=== PATIENT | female | born 1990 | race Caucasian/White ===

== ENCOUNTER 2017-04-26 14:29 | Emergency (ER) | payer SELFPAY ==
[~2017-04-26] VITALS: Ht 170.2 cm; Wt 103.5 kg
[~2017-04-26 14:29] MED LIST: ALBU90OI INH; BENZ100A PO; CEPH500 PO; CLIN150 PO; CLOB.05TO TP; CODACE30 PO; Elite Ob Dha S1 EACH; FAMO20 PO; FERR325 PO; HYDACE5 PO; HYDCOR1TC TOP; IBUP800 PO; MULVITMINE PO; NAPR500 PO; OXYACE5T PO; PENVK500 PO; PHENA200 PO; PROM25 PO; SULTRIDS PO; SUMA25 PO
[2017-04-26] MEDS ORDERED: BUSP10 PO (15:13)
[2017-04-26] MEDS ORDERED: BENZ100A PO (15:52)
[2017-04-26] MEDS ORDERED: Sudogest60 MG PO (15:52)
== END 2017-04-26 16:10 | disposition home or self-care (01) ==
LOC: ER 14:29
DX: J06.9 Acute upper respiratory infection, unspecified (principal); Z79.899 Other long term (current) drug therapy; F17.210 Nicotine dependence, cigarettes, uncomplicated
CPT/HCPCS: 99283

== ENCOUNTER → 2018-05-13 | Outpatient (CLI) | payer OTHER ==
[~2018-05-13] MED LIST changes: +BUSP10 PO; +Sudogest60 MG PO
== END | disposition home or self-care (01) ==
LOC: LAB EV 15:56 → LAB SHORT 15:56
DX: J02.9 Acute pharyngitis, unspecified (principal); N39.0 Urinary tract infection, site not specified
CPT/HCPCS: 87070; 87086

== ENCOUNTER 2018-07-25 11:27 | Emergency (ER) | payer OTHER ==
[~2018-07-25] VITALS: Ht 170.2 cm; Wt 113.4 kg
[2018-07-25] MEDS ORDERED: Verotin-Gr Cap1 EACH PO (11:39)
[2018-07-25] MEDS ORDERED: Veetids 500500 MG PO (13:14)
== END 2018-07-25 13:30 | disposition home or self-care (01) ==
LOC: ER 11:27
DX: O99.513 Diseases of the respiratory system complicating pregnancy, third trimester (principal); J02.0 Streptococcal pharyngitis; Z3A.30 30 weeks gestation of pregnancy
CPT/HCPCS: 87430; 99282

== ENCOUNTER 2018-09-21 15:47 | Inpatient (IN) | payer OTHER ==
[~2018-09-21] VITALS: Ht 170.2 cm; Wt 118.0 kg
[~2018-09-21 15:47] MED LIST changes: +Veetids 500500 MG PO; +Verotin-Gr Cap1 EACH PO
[2018-09-22] MEDS ORDERED: IRON236 MG PO (10:24)
[2018-09-22 10:39] LABS: BASOPHILS ABSOLUTE AUTO 0.03 K/mm3 (0.00-0.23); BASOPHILS PERCENT AUTO 0 % (0-2); EOSINOPHILS ABSOLUTE AUTO 0.11 K/mm3 (0.00-0.68); EOSINOPHILS PERCENT AUTO 1 % (0-6); Hematocrit 35.3 % (33.0-51.0); Hemoglobin 11.3 g/dL (11.5-16.0); IMMATURE GRAN ABSOLUTE AUTO 0.06 K/mm3 (0.00-0.10); IMMATURE GRAN PERCENT AUTO 1 % (0-1); LYMPHOCYTES ABSOLUTE AUTO 1.03 K/mm3 (0.84-5.20); LYMPHOCYTES PERCENT AUTO 12 % (21-46); MONOCYTES ABSOLUTE AUTO 0.47 K/mm3 (0.16-1.47); MONOCYTES PERCENT AUTO 5 % (4-13); Mean Corpuscular HGB 29.4 pg (26.0-34.0); Mean Corpuscular Volume 92 fL (80-100); Mean Platelet Volume 10.6 fL (9.1-12.4); NEUTROPHILS ABSOLUTE AUTO 7.27 K/mm3 (1.96-9.15); NEUTROPHILS PERCENT AUTO 81 % (41-73); Platelet Count 167 K/mm3 (150-400); RDW Coefficient Variation 15.3 % (11.7-14.2); RDW Standard Deviation 51.4 fL (35.1-46.3); Red Blood Cell Count 3.85 M/mm3 (3.80-5.20); White Blood Cell Count 8.97 K/mm3 (4.00-11.30)
[2018-09-24 08:20] LABS: PCO2 Cord - Venous 56.9 mmHg (40-50); PO2 Cord - Venous 23.7 mmHg (28-32); pH Umbilical Cord - Venous 7.18 (7.26-7.35)
[2018-09-24 08:21] LABS: PCO2 Cord - Arterial 73.6 mmHg (40-50); pH Cord - Arterial 7.11 (7.28-7.35)
[2018-09-24 08:22] LABS: PO2 Cord - Arterial < 18 mmHg (16-20)
--- NOTE | 2018-09-24 08:27 | NUR ---
09/24/18 0827 Sharon Brink REPEAT SECTION WITH BILATERAL SALPINGECTOMY. FEMALE APGARS 9/9, WT 3050 (6-12GM), PLACENTA WEIGHT 670GM. CORD SEGMENT GIVEN TO RT AND CORD BLOOD GIVEN TO BABY RN.
--- NOTE | 2018-09-25 01:07 | NUR ---
IV WOULD NOT FLUSH AND WAS VERY PAINFUL TO PT WHEN GETTING READY TO GIVE ABX. IV WAS REMOVED AND A NEW ONE ATTEMPTED TO BE INSERTED, BUT MULTIPLE ATTEMPTS BY THIS NURSE AND THE METAL BALER TONY Langston WERE UNSUCCESSFUL. PT HAS LIMITED ACCESS DUE TO PSORIASIS OVER LARGE PARTS OF BOTH ARMS. PT RECEIVED ONE PRE-OP ABX DOSE AND TWO POST-OP. AFTER DISCUSSING WITH METAL BALER SHERRY, THIS ABX DOSE WILL BE DOCUMENTED NOT GIVEN, AND THE PROVIDER WILL BE NOTIFIED IN THE MORNING TO SEE WHAT THEY WANT TO DO. KIOK RN
[2018-09-25 05:50] LABS: BASOPHILS ABSOLUTE AUTO 0.03 K/mm3 (0.00-0.23); BASOPHILS PERCENT AUTO 0 % (0-2); EOSINOPHILS ABSOLUTE AUTO 0.19 K/mm3 (0.00-0.68); EOSINOPHILS PERCENT AUTO 2 % (0-6); Hematocrit 31.6 % (33.0-51.0); Hemoglobin 10.4 g/dL (11.5-16.0); IMMATURE GRAN ABSOLUTE AUTO 0.04 K/mm3 (0.00-0.10); IMMATURE GRAN PERCENT AUTO 1 % (0-1); LYMPHOCYTES ABSOLUTE AUTO 0.66 K/mm3 (0.84-5.20); LYMPHOCYTES PERCENT AUTO 8 % (21-46); MONOCYTES ABSOLUTE AUTO 0.56 K/mm3 (0.16-1.47); MONOCYTES PERCENT AUTO 7 % (4-13); Mean Corpuscular HGB 30.1 pg (26.0-34.0); Mean Corpuscular HGB Conc 32.9 g/dL (31.5-36.5); Mean Corpuscular Volume 92 fL (80-100); Mean Platelet Volume 10.3 fL (9.1-12.4); NEUTROPHILS ABSOLUTE AUTO 6.94 K/mm3 (1.96-9.15); NEUTROPHILS PERCENT AUTO 82 % (41-73); Platelet Count 131 K/mm3 (150-400); RDW Coefficient Variation 15.4 % (11.7-14.2); RDW Standard Deviation 50.4 fL (35.1-46.3); Red Blood Cell Count 3.45 M/mm3 (3.80-5.20); White Blood Cell Count 8.42 K/mm3 (4.00-11.30)
--- NOTE | 2018-09-25 10:06 | NUR ---
GAYLA RAMIREZ CALLED AND NOTIFIED PT'S IV WENT BACK AND POWER LINEMAN TECHNICIAN UNABLE TO START NEW IV. T/O TO START IV AND COMPLETE LAST TWO DOSES OF IV ANTIBIOTICS.
--- NOTE | 2018-09-25 12:37 | NUR ---
SPOKE TO Denia WEBBER CNM IN [facility]. UPDATED HER ON PT BEING HARD WITH VASCULAR ACCESS. PT STATES NEW IV IS STINGING WITH FLUSH. 3RD OF 4 ANTIBIOTIC DOSES IN. VERBAL OK TO DISCONTINUE ORDER IF IV INFILTRATES OR IS UNUSEABLE.
[2018-09-26] MEDS ORDERED: Percocet 5-3251 EACH PO (12:49)
--- NOTE | 2018-09-26 14:11 | NUR ---
9273 DISCHARGE DISCHARGE INSTRUCTIONS REVIEWED WITH AND COPY GIVEN TO PATIENT. PATIENT VERBALIZED UNDERSTANDING
== END 2018-09-26 14:04 | disposition home or self-care (01) | DRG 785 ==
LOC: BC 09-24 05:36
PROVIDERS: ADMIT Obstetrics & Gynecology
PROC: 10D00Z1 Extraction of Products of Conception, Low, Open Approach (ICD-10-PCS; principal; 2018-09-24 07:30)
PROC: 0UT70ZZ Resection of Bilateral Fallopian Tubes, Open Approach (ICD-10-PCS; 2018-09-24 07:30)
DX: O34.211 Maternal care for low transverse scar from previous cesarean delivery (principal); Z3A.39 39 weeks gestation of pregnancy; Z37.0 Single live birth; O99.334 Smoking (tobacco) complicating childbirth; F17.210 Nicotine dependence, cigarettes, uncomplicated; O99.72 Diseases of the skin and subcutaneous tissue complicating childbirth; L40.9 Psoriasis, unspecified; O99.214 Obesity complicating childbirth; E66.01 Morbid (severe) obesity due to excess calories
CPT/HCPCS: 36415; 82803; 85025; 86850; 86900; 86901; 88302; J0690; J1885; J2370; J2405; J2590; J2765; J3010; J3430; J7120

== ENCOUNTER 2018-10-01 20:28 | Emergency (ER) | payer OTHER ==
[~2018-10-01] VITALS: Ht 170.2 cm; Wt 119.3 kg
[~2018-10-01 20:28] MED LIST changes: +IRON236 MG PO; +Percocet 5-3251 EACH PO
[2018-10-01 21:15] LABS: Source, Urine Clean Catch
[2018-10-01 21:29] LABS: Bilirubin, Urine Neg (Neg); Blood, Urine 2+ (Neg); Glucose Qualitative, Urine Neg (Neg); Ketones, Urine Neg (Neg); Leukocyte Esterase, Urine 3+ (Neg); Nitrite, Urine Neg (Neg); Protein, Urine Neg (Neg); Specific Gravity, Urine 1.015 (1.003-1.022); Urobilinogen, Urine NORM (Normal)
[2018-10-01 21:35] LABS: BASOPHILS ABSOLUTE AUTO 0.04 K/mm3 (0.00-0.23); BASOPHILS PERCENT AUTO 0 % (0-2); EOSINOPHILS ABSOLUTE AUTO 0.19 K/mm3 (0.00-0.68); EOSINOPHILS PERCENT AUTO 2 % (0-6); Hematocrit 36.2 % (33.0-51.0); Hemoglobin 11.7 g/dL (11.5-16.0); IMMATURE GRAN ABSOLUTE AUTO 0.06 K/mm3 (0.00-0.10); IMMATURE GRAN PERCENT AUTO 1 % (0-1); LYMPHOCYTES ABSOLUTE AUTO 0.63 K/mm3 (0.84-5.20); LYMPHOCYTES PERCENT AUTO 6 % (21-46); MONOCYTES ABSOLUTE AUTO 0.42 K/mm3 (0.16-1.47); MONOCYTES PERCENT AUTO 4 % (4-13); Mean Corpuscular HGB 29.9 pg (26.0-34.0); Mean Corpuscular HGB Conc 32.3 g/dL (31.5-36.5); Mean Corpuscular Volume 93 fL (80-100); Mean Platelet Volume 9.9 fL (9.1-12.4); NEUTROPHILS ABSOLUTE AUTO 9.12 K/mm3 (1.96-9.15); NEUTROPHILS PERCENT AUTO 87 % (41-73); Platelet Count 212 K/mm3 (150-400); RDW Coefficient Variation 14.5 % (11.7-14.2); RDW Standard Deviation 49.1 fL (35.1-46.3); Red Blood Cell Count 3.91 M/mm3 (3.80-5.20); White Blood Cell Count 10.46 K/mm3 (4.00-11.30)
[2018-10-01 21:40] LABS: Color, Urine Yellow (P-Yellow)
[2018-10-01 21:41] LABS: Appearance, Urine Hazy (Clear); Bacteria Mod /hpf; Squamous Epithelial Cells Few /hpf (Few)
[2018-10-01 21:53] LABS: Alanine Aminotransfer (ALT/SGP 46 U/L (12-78); Albumin, Blood 2.8 g/dL (3.4-5.0); Albumin/Globulin Ratio 0.6 (0.8-1.8); Alk Phos 76 U/L (50-136); Anion Gap 9 mmol/L (6-16); Aspartate Aminotrans (AST/SGOT 19 U/L (12-37); Bilirubin, Total 0.6 mg/dL (0.1-1.0); Blood Urea Nitrogen 11 mg/dL (8-24); CO2, Blood 23 mmol/L (21-32); Calcium, Blood 8.7 mg/dL (8.5-10.1); Chloride, Blood 106 mmol/L (98-108); Creatinine, Blood 0.69 mg/dL (0.40-1.00); Globulin, Blood 4.4 g/dL (2.2-4.0); Glomerular Filtration Rate >60 (60-); Glucose, Blood 125 mg/dL (70-99); Potassium, Blood 3.8 mmol/L (3.5-5.5); Sodium, Blood 138 mmol/L (136-145); Total Protein, Blood 7.2 g/dL (6.4-8.2)
[2018-10-01] MEDS ORDERED: ABAT250V (23:20)
[2018-10-01] MEDS ORDERED: IBUP800 (23:20)
== END 2018-10-02 01:17 | disposition home or self-care (01) ==
LOC: ER 20:28
PROVIDERS: Physician Assistant
DX: O99.53 Diseases of the respiratory system complicating the puerperium (principal); J06.9 Acute upper respiratory infection, unspecified; J45.909 Unspecified asthma, uncomplicated; O99.335 Smoking (tobacco) complicating the puerperium; F17.210 Nicotine dependence, cigarettes, uncomplicated; Z79.891 Long term (current) use of opiate analgesic
CPT/HCPCS: 36415; 71046; 80053; 81001; 85025; 87086; 87147; 94640; 99284-25

== ENCOUNTER 2019-06-12 00:01 | Emergency (ER) | payer SELFPAY ==
[~2019-06-12] VITALS: Ht 170.2 cm; Wt 117.9 kg
[~2019-06-12 00:01] MED LIST changes: +ABAT250V; +IBUP800
[2019-06-12 00:35] LABS: BASOPHILS ABSOLUTE AUTO 0.08 K/mm3 (0.00-0.23); BASOPHILS PERCENT AUTO 1 % (0-2); EOSINOPHILS ABSOLUTE AUTO 0.27 K/mm3 (0.00-0.68); EOSINOPHILS PERCENT AUTO 3 % (0-6); Hematocrit 40.4 % (33.0-51.0); Hemoglobin 12.9 g/dL (11.5-16.0); IMMATURE GRAN ABSOLUTE AUTO 0.02 K/mm3 (0.00-0.10); IMMATURE GRAN PERCENT AUTO 0 % (0-1); LYMPHOCYTES ABSOLUTE AUTO 1.58 K/mm3 (0.84-5.20); LYMPHOCYTES PERCENT AUTO 19 % (21-46); MONOCYTES ABSOLUTE AUTO 0.42 K/mm3 (0.16-1.47); MONOCYTES PERCENT AUTO 5 % (4-13); Mean Corpuscular HGB 27.5 pg (26.0-34.0); Mean Corpuscular HGB Conc 31.9 g/dL (31.5-36.5); Mean Corpuscular Volume 86 fL (80-100); Mean Platelet Volume 10.7 fL (9.1-12.4); NEUTROPHILS ABSOLUTE AUTO 6.18 K/mm3 (1.96-9.15); NEUTROPHILS PERCENT AUTO 72 % (41-73); Platelet Count 267 K/mm3 (150-400); RDW Coefficient Variation 14.6 % (11.7-14.2); RDW Standard Deviation 45.8 fL (35.1-46.3); Red Blood Cell Count 4.69 M/mm3 (3.80-5.20); White Blood Cell Count 8.55 K/mm3 (4.00-11.30)
[2019-06-12 00:43] LABS: Source, Urine Clean Catch
[2019-06-12 00:47] LABS: Bilirubin, Urine Neg (Neg); Blood, Urine 4+ (Neg); Glucose Qualitative, Urine Neg (Neg); Ketones, Urine Neg (Neg); Leukocyte Esterase, Urine 1+ (Neg); Nitrite, Urine Neg (Neg); Protein, Urine Neg (Neg); Specific Gravity, Urine 1.015 (1.003-1.022); Urobilinogen, Urine 1+ (Normal)
[2019-06-12 00:48] LABS: Appearance, Urine Clear (Clear); Color, Urine Yellow (P-Yellow)
[2019-06-12 00:53] LABS: Alanine Aminotransfer (ALT/SGP 21 U/L (12-78); Albumin, Blood 3.8 g/dL (3.4-5.0); Albumin/Globulin Ratio 0.8 (0.8-1.8); Alk Phos 57 U/L (50-136); Anion Gap 6 mmol/L (6-16); Aspartate Aminotrans (AST/SGOT 21 U/L (12-37); Bilirubin, Total 0.6 mg/dL (0.1-1.0); Blood Urea Nitrogen 10 mg/dL (8-24); Bun/Creatinine Ratio 12.2 (12.0-20.0); CO2, Blood 26 mmol/L (21-32); Calcium, Blood 9.2 mg/dL (8.5-10.1); Chloride, Blood 107 mmol/L (98-108); Creatinine, Blood 0.82 mg/dL (0.40-1.00); Globulin, Blood 4.5 g/dL (2.2-4.0); Glomerular Filtration Rate >60 (60-); Glucose, Blood 92 mg/dL (70-99); Sodium, Blood 139 mmol/L (136-145); Total Protein, Blood 8.3 g/dL (6.4-8.2)
[2019-06-12 00:56] LABS: Bacteria Rare /hpf; Red Blood Cells, Urine 0-2 /hpf (0-2); Squamous Epithelial Cells Few /hpf (Few); White Blood Cells, Urine Rare /hpf (0-5)
== END 2019-06-12 01:53 | disposition home or self-care (01) ==
LOC: ER 00:01
PROVIDERS: Emergency Medicine
DX: N93.8 Other specified abnormal uterine and vaginal bleeding (principal); R10.30 Lower abdominal pain, unspecified; F41.9 Anxiety disorder, unspecified; F17.210 Nicotine dependence, cigarettes, uncomplicated
CPT/HCPCS: 36415; 80053; 81001; 81025; 83690; 85025; 99284

== ENCOUNTER 2020-06-02 23:09 | Emergency (ER) | payer OTHER ==
[~2020-06-02] VITALS: Ht 170.2 cm; Wt 108.9 kg
[2020-06-03] MEDS ORDERED: EPIPEN0.3 MG/0.3 IM (01:16)
[2020-06-03] MEDS ORDERED: Prednisone50 MG PO (01:16)
[2020-06-03] MEDS ORDERED: Pepcid20 MG PO (01:16)
[2020-06-03] MEDS ORDERED: AMOCLA875 PO (01:16)
[2020-06-03] MEDS ORDERED: Benadryl 50 mg50 MG PO (01:16)
== END 2020-06-03 03:55 | disposition home or self-care (01) ==
LOC: ER 23:09
DX: L27.0 Generalized skin eruption due to drugs and medicaments taken internally (principal); F17.210 Nicotine dependence, cigarettes, uncomplicated
CPT/HCPCS: 36415; 96372; 96374; 96375; 99284; J0171; J1200; J2930

== ENCOUNTER 2020-06-05 04:35 | Observation (INO) | payer OTHER ==
[~2020-06-05] VITALS: Ht 162.6 cm; Wt 110.8 kg
[~2020-06-05 04:35] MED LIST changes: +AMOCLA875 PO; +Benadryl 50 mg50 MG PO; +EPIPEN0.3 MG/0.3 IM; +Pepcid20 MG PO; +Prednisone50 MG PO
[2020-06-05 05:17] LABS: BASOPHILS ABSOLUTE AUTO 0.06 K/mm3 (0.00-0.23); BASOPHILS PERCENT AUTO 0 % (0-2); EOSINOPHILS ABSOLUTE AUTO 0.02 K/mm3 (0.00-0.68); EOSINOPHILS PERCENT AUTO 0 % (0-6); Hematocrit 37.6 % (33.0-51.0); Hemoglobin 12.2 g/dL (11.5-16.0); IMMATURE GRAN ABSOLUTE AUTO 0.06 K/mm3 (0.00-0.10); IMMATURE GRAN PERCENT AUTO 0 % (0-1); LYMPHOCYTES ABSOLUTE AUTO 0.51 K/mm3 (0.84-5.20); LYMPHOCYTES PERCENT AUTO 3 % (21-46); MONOCYTES ABSOLUTE AUTO 0.24 K/mm3 (0.16-1.47); MONOCYTES PERCENT AUTO 1 % (4-13); Mean Corpuscular HGB 26.9 pg (26.0-34.0); Mean Corpuscular HGB Conc 32.4 g/dL (31.5-36.5); Mean Corpuscular Volume 83 fL (80-100); Mean Platelet Volume 10.5 fL (9.1-12.4); NEUTROPHILS ABSOLUTE AUTO 17.16 K/mm3 (1.96-9.15); NEUTROPHILS PERCENT AUTO 95 % (41-73); Platelet Count 324 K/mm3 (150-400); RDW Coefficient Variation 15.1 % (11.7-14.2); RDW Standard Deviation 45.5 fL (35.1-46.3); Red Blood Cell Count 4.54 M/mm3 (3.80-5.20); White Blood Cell Count 18.05 K/mm3 (4.00-11.30)
[2020-06-05 05:33] LABS: International Normalized Ratio 0.98; Prothrombin Time Results 10.5 Sec (9.7-11.5)
[2020-06-05 05:39] LABS: Alanine Aminotransfer (ALT/SGP 48 U/L (12-78); Albumin, Blood 3.5 g/dL (3.4-5.0); Albumin/Globulin Ratio 0.8 (0.8-1.8); Alk Phos 71 U/L (50-136); Anion Gap 9 mmol/L (6-16); Aspartate Aminotrans (AST/SGOT 29 U/L (12-37); Bilirubin, Total 0.8 mg/dL (0.1-1.0); Blood Urea Nitrogen 11 mg/dL (8-24); Bun/Creatinine Ratio 16.5 (12.0-20.0); CO2, Blood 21 mmol/L (21-32); Chloride, Blood 110 mmol/L (98-108); Creatinine, Blood 0.67 mg/dL (0.40-1.00); Globulin, Blood 4.3 g/dL (2.2-4.0); Glomerular Filtration Rate >60 (60-); Glucose, Blood 107 mg/dL (70-99); Potassium, Blood 4.1 mmol/L (3.5-5.5); Sodium, Blood 140 mmol/L (136-145); Total Protein, Blood 7.8 g/dL (6.4-8.2)
[2020-06-05 10:01] LABS: Influenza A, PCR NEGATIVE (NEGATIVE); Influenza B, PCR NEGATIVE (NEGATIVE); Resp Syncytial Virus, PCR NEGATIVE (NEGATIVE); SARS-Cov-2 (COVID-19) PCR, MMC NEGATIVE (NEGATIVE)
--- NOTE | 2020-06-05 18:28 | NUR ---
SHIFT SUMMARY/ADMISSION NOTE PT ARRIVED TO MEDICAL FLOOR FOR ADMIT AT APPROX 1055. PT AxOx4. PLEASANT AND COOPERATIVE WITH CARE. REPORTS PAIN ALL OVER BODY R/T SKIN RASH AND JOINT PAIN WITH MOVEMENT. MEDICATED PER EMAR. PT DECLINED NON PHARM PAIN MANAGEMENT INTERVENTIONS. DR CUMMINS, PORTABLE ROUTER OPERATOR IN FOR CONSULT WITH PATIENT TODAY. CURRENT PLAN IS TO OBSERVE OVERNIGHT FOR RASH IMPROVEMENT. TOPICAL STEROIDS APPLIED TO ARMS/HANDS PER EMAR. PT REPORTS OINTMENT MADE HER HANDS BURN/TINGLE. PT IS HESITANT TO APPLY OINTMENT AGAIN/ALL OVER BODY. PT CURRENTLY RESTING IN BED EATING DINNER WITH CALL LIGHT IN REACH. VITALS REVIEWED. DENIES ANY NEEDS AT THIS TIME.
[2020-06-05 20:44] LABS: Source, Urine Clean Catch
[2020-06-05 20:47] LABS: Appearance, Urine Clear (Clear); Bilirubin, Urine Neg (Neg); Blood, Urine Neg (Neg); Color, Urine Amber (P-Yellow); Glucose Qualitative, Urine Neg (Neg); Ketones, Urine Neg (Neg); Leukocyte Esterase, Urine 2+ (Neg); Nitrite, Urine Neg (Neg); Protein, Urine 1+ (Neg); Specific Gravity, Urine 1.015 (1.003-1.022); Urobilinogen, Urine 2+ (Normal); pH, Urine 6.5 (5.0-8.0)
[2020-06-05 21:01] LABS: U Amphetamine Screen Not Detected; U Barbituate Screen Not Detected; U Benzodiazapine Screen Not Detected; U Buprenorphine Screen Not Detected; U Cannabinoids Screen Not Detected; U Cocaine Screen Not Detected; U Methadone Screen Not Detected; U Methamphetamine Screen Not Detected; U Opiates Screen Not Detected; U Oxycodone Screen DETECTED; U Phencyclidine Screen Not Detected; U Propoxyphene Screen Not Detected
[2020-06-05 21:04] LABS: Amorphous Light (0-Heavy); Bacteria Few /hpf; Mucus Light (0-Heavy); Red Blood Cells, Urine 0-2 /hpf (0-2); Squamous Epithelial Cells Mod /hpf (Few)
--- NOTE | 2020-06-06 04:29 | NUR ---
SHIFT SUMMARY ADMITTED FOR ALLERGIC DRUG REACTION, COMPLICATED BY EXISTING PSORIASIS. FULL CODE. NS IS INFUSING @ 100 ML/HR. PT IS REFUSING TOPICAL CREAM, STATING "IT WOOD". SHE REQUESTED PAIN MEDICATION X2 THIS SHIFT. URINALYSIS SENT ORDERED, POSSIBLE UTI. WE WILL DISREGARD THE POSITIVE FOR OXYCODONE THIS IS IN THE EMAR PRESCRIBED. DR CUMMINS IS DERMATOLOGY CONSULT. PT STATES SHE IS UNABLE TO WALK. SHE NEEDS TO BE ABLE TO WALK TO GET BACK UPSTAIRS TO HER APARTMENT WHERE SHE LIVES WITH FAMILY. SHE HAS BEEN RUNNING SLIGHTLY HYPOTENSIVE WITH LOW GRADE FEVER.
[2020-06-06 05:03] LABS: Hematocrit 31.5 % (33.0-51.0); Mean Corpuscular HGB 26.7 pg (26.0-34.0); Mean Corpuscular HGB Conc 31.7 g/dL (31.5-36.5); Mean Corpuscular Volume 84 fL (80-100); Mean Platelet Volume 10.2 fL (9.1-12.4); Platelet Count 240 K/mm3 (150-400); RDW Coefficient Variation 15.7 % (11.7-14.2); RDW Standard Deviation 47.8 fL (35.1-46.3); Red Blood Cell Count 3.74 M/mm3 (3.80-5.20); White Blood Cell Count 12.62 K/mm3 (4.00-11.30)
[2020-06-06 05:26] LABS: Anion Gap 5 mmol/L (6-16); Blood Urea Nitrogen 11 mg/dL (8-24); Bun/Creatinine Ratio 15.4 (12.0-20.0); CO2, Blood 23 mmol/L (21-32); Calcium, Blood 7.8 mg/dL (8.5-10.1); Chloride, Blood 108 mmol/L (98-108); Creatinine, Blood 0.71 mg/dL (0.40-1.00); Glomerular Filtration Rate >60 (60-); Glucose, Blood 107 mg/dL (70-99); Potassium, Blood 3.9 mmol/L (3.5-5.5); Sodium, Blood 136 mmol/L (136-145)
--- NOTE | 2020-06-06 10:20 | NUR ---
PATIENT HYPOTENSIVE PATIENT HYPOTENSIVE AT 88/49 THIS AM W/INCREASED HR AT 110. APPEARS PALE. PATIENT REPORTS FEELING WEAK AND DIZZY. CALL TO DR. JORGE TO INFORM, NEW ORDER FOR 500ML NS BOLUS AND INCREASED RATE OF CONTINUOUS NS TO 150. BP 88/49 AFTER BOLUS BUT PATIENT REPORTS FEELING MORE ALERT AND LESS DIZZY. PATIENT'S COLOR APPEARS BETTER AND SHE WAS ABLE TO TRANSFER TO SBA. CALL TO DR. JORGE TO INFORM, ADVISED TO CONTINUE TO MONITOR PATIENT.
--- NOTE | 2020-06-06 16:14 | NUR ---
SHIFT SUMMARY PATIENT MEDICATED SEVERAL TIMES FOR PAIN ALTERNATING BETWEEN PO AND IV PAIN MEDICATION. DENIES NAUSEA AND SHORTNESS OF BREATH. UP SBA TO BR. GIVEN 500ML BOLUS THIS AM FOR HYPOTENSION WITH GOOD EFFECT. NEW ORDERS FOR [place]STATIN SWISH FOR THRUSH ON TONGUE. PATIENT RESTING IN BED AND TALKING ON PHONE MOST OF SHIFT. EATING AND DRINKING WELL. PLEASANT AND COOPERATIVE WITH CARE.
[2020-06-07 04:59] LABS: Hematocrit 30.2 % (33.0-51.0); Hemoglobin 9.7 g/dL (11.5-16.0); Mean Corpuscular HGB 26.8 pg (26.0-34.0); Mean Corpuscular HGB Conc 32.1 g/dL (31.5-36.5); Mean Corpuscular Volume 83 fL (80-100); Mean Platelet Volume 10.1 fL (9.1-12.4); Platelet Count 232 K/mm3 (150-400); RDW Coefficient Variation 15.2 % (11.7-14.2); RDW Standard Deviation 46.5 fL (35.1-46.3); Red Blood Cell Count 3.62 M/mm3 (3.80-5.20); White Blood Cell Count 9.46 K/mm3 (4.00-11.30)
[2020-06-07 05:19] LABS: Anion Gap 5 mmol/L (6-16); Blood Urea Nitrogen 6 mg/dL (8-24); Bun/Creatinine Ratio 9.8 (12.0-20.0); CO2, Blood 24 mmol/L (21-32); Calcium, Blood 7.7 mg/dL (8.5-10.1); Chloride, Blood 110 mmol/L (98-108); Creatinine, Blood 0.61 mg/dL (0.40-1.00); Glomerular Filtration Rate >60 (60-); Glucose, Blood 88 mg/dL (70-99); Sodium, Blood 139 mmol/L (136-145)
--- NOTE | 2020-06-07 06:18 | NUR ---
SHIFT SUMMARY PATIENT ALERT AND ORIENTED. WAS MEDICATED PER EMAR FOR PAIN NEEDED. NO COMPLAINTS OF SHORTNESS OF BREATH. PATIENT DID NOT SLEEP MUCH OVERNIGHT DUE TO PAIN. IV PATENT AND INFUSING. BED IN LOWEST POSITION WITH WHEELS LOCKED AND ALARM ON. CALL LIGHT WITHIN REACH. REPORT GIVEN TO ONCOMING RN.
--- NOTE | 2020-06-07 19:35 | NUR ---
SHIFT SUMMARY: NO ACUTE CHANGES TO REPORT THIS SHIFT. PT A&O; CALM AND COOPERATIVE WITH CARE. MEDICATED FOR ALL-OVER PAIN (R/T SKIN RASH) PER EMAR. FLUIDS CONTINUING. REPORT GIVEN TO ONCOMING RN.
--- NOTE | 2020-06-08 05:53 | NUR ---
SHIFT SUMMARY A/O, ABLE TO MAKE NEEDS KNOWN. COOPERATIVE WITH CARE. CALLS AND ANSWERS QUESTIONS APPROPRIATELY. C/O PAIN/DISCOMFORT THAT WAS CHARACTERIZED GENERALIZED AND RATED 7/10; MEDICATED PER EMAR. UP SBA TO BATHROOM. NO NOTED DIZZINESS/LIGHTHEADEDNESS. NEW IV TO LFA; REMAINS ON CONTINUOUS FLUIDS WITHOUT COMPLICATION TO NEW IV. VSS/AFEBRILE. ABLE TO REST FOR SOME OF THE NIGHT. NO OTHER ACUTE CHANGES NOTED OVERNIGHT. BED REMAINED IN LOWEST POSITION. CALL LIGHT AND BELONGINGS WITHIN REACH. CONTINUE WITH CURRENT PLAN OF CARE. REPORT TO ONCOMING RN.
[2020-06-08] MEDS ORDERED: OXYC5 PO (14:17)
--- NOTE | 2020-06-08 15:21 | NUR ---
PATIENT DISCHARGE: PATIENT DISCHARGED TO HOME THIS SHIFT. MEDICATION RECONCILIATION COMPLETED; MED LIST FAXED TO [facility] IN [place]; HARD SCRIPT PROVIDED TO PATIENT FOR CONTROLLED SUBSTANCE. DISCHARGE EDUCATION COMPLETED WITH PATIENT. PATIENT TRANSPORTED TO EXIT BY [facility] STAFF WITH WHEELCHAIR AT 1515. PATIENT DEPARTED [facility] VIA PRIVATE AUTO.
== END 2020-06-08 15:16 | disposition home or self-care (01) ==
LOC: ER 04:35 → MEDS 04:36 → ENPENDDIS 06-08 13:55 → MEDS 06-08 15:16
PROVIDERS: Emergency Medicine; Nurse Practitioner Acute Care; ADMIT Internal Medicine
DX: L27.0 Generalized skin eruption due to drugs and medicaments taken internally (principal); T36.8X5A Adverse effect of other systemic antibiotics, initial encounter; L40.0 Psoriasis vulgaris; J45.909 Unspecified asthma, uncomplicated; F17.210 Nicotine dependence, cigarettes, uncomplicated; D64.9 Anemia, unspecified; K05.319 Chronic periodontitis, localized, unspecified severity; F41.9 Anxiety disorder, unspecified; E66.01 Morbid (severe) obesity due to excess calories; Z68.34 Body mass index [BMI] 34.0-34.9, adult; Z20.822 Contact with and (suspected) exposure to COVID-19
CPT/HCPCS: 0241U; 36415; 80048; 80053; 81001; 85025; 85027; 85610; 87070; 87086; 87205; 96361; 96372; 96374; 96375; 96376; 97110; 97116; 97161; 97530; 99285-25; A9270; C9113; G0378; J1650; J2405; J3010; J7030; J7040

== ENCOUNTER 2023-05-13 10:19 | Emergency (ER) | payer OTHER ==
[~2023-05-13] VITALS: Ht 170.2 cm; Wt 104.3 kg
[~2023-05-13 10:19] MED LIST changes: +OXYC5 PO
[2023-05-13 10:39] VITALS: BP 154/91
[2023-05-13] MEDS ORDERED: Neurontin 300300 MG PO (10:50)
[2023-05-14] MEDS ORDERED: Percocet 5-3251 EACH PO (19:50)
[2023-05-14] MEDS ORDERED: Miralax17 GM PO (19:50)
== END 2023-05-13 11:00 | disposition home or self-care (01) ==
LOC: ER 10:19
DX: M54.50 Low back pain, unspecified (principal); Z88.1 Allergy status to other antibiotic agents; Z79.899 Other long term (current) drug therapy; J45.909 Unspecified asthma, uncomplicated; G43.909 Migraine, unspecified, not intractable, without status migrainosus; F17.210 Nicotine dependence, cigarettes, uncomplicated
CPT/HCPCS: 99283

== ENCOUNTER 2023-07-11 10:11 | Inpatient (IN) | payer OTHER ==
[~2023-07-11] VITALS: Ht 170.2 cm; Wt 120.7 kg
[~2023-07-11 10:11] MED LIST changes: +Miralax17 GM PO; +Neurontin 300300 MG PO
[2023-07-11] MEDS ORDERED: Ondansetron HCl 2 MG / ML 2ML Vial IV ONE (10:40)
[2023-07-11 10:47] LABS: BASOPHILS ABSOLUTE AUTO 0.06 K/mm3 (0.00-0.23); BASOPHILS PERCENT AUTO 1 % (0-2); EOSINOPHILS ABSOLUTE AUTO 0.16 K/mm3 (0.00-0.68); EOSINOPHILS PERCENT AUTO 1 % (0-6); Hemoglobin 12.5 g/dL (11.5-16.0); IMMATURE GRAN ABSOLUTE AUTO 0.06 K/mm3 (0.00-0.10); IMMATURE GRAN PERCENT AUTO 1 % (0-1); LYMPHOCYTES PERCENT AUTO 8 % (21-46); MONOCYTES PERCENT AUTO 4 % (4-13); Mean Corpuscular HGB 24.1 pg (26.0-34.0); Mean Corpuscular HGB Conc 31.3 g/dL (31.5-36.5); Mean Corpuscular Volume 77 fL (80-100); Mean Platelet Volume 9.8 fL (9.1-12.4); NEUTROPHILS ABSOLUTE AUTO 9.67 K/mm3 (1.96-9.15); NEUTROPHILS PERCENT AUTO 86 % (41-73); Platelet Count 328 K/mm3 (150-400); RDW Coefficient Variation 16.6 % (11.7-14.2); RDW Standard Deviation 46.4 fL (35.1-46.3); Red Blood Cell Count 5.19 M/mm3 (3.80-5.20); White Blood Cell Count 11.25 K/mm3 (4.00-11.30)
[2023-07-11 11:24] LABS: Source, Urine Clean Catch
[2023-07-11 11:34] LABS: Appearance, Urine Hazy (Clear); Bilirubin, Urine Neg (Neg); Blood, Urine 4+ (Neg); Color, Urine Yellow (P-Yellow); Glucose Qualitative, Urine Neg (Neg); Ketones, Urine Neg (Neg); Leukocyte Esterase, Urine 1+ (Neg); Nitrite, Urine Neg (Neg); Protein, Urine Neg (Neg); Urobilinogen, Urine NORM (Normal)
[2023-07-11 11:48] LABS: Bacteria Mod /hpf; Mucus Light (0-Heavy); Squamous Epithelial Cells Few /hpf (Few)
[2023-07-11] MEDS ORDERED: FentaNYL Citrate 50 MCG/ML 2 ML Injection IV PRN ×2 (14:30→16:35)
[2023-07-11] MEDS ORDERED: Ondansetron HCl 2 MG / ML 2ML Vial IV PRN (14:30)
[2023-07-11] MEDS ORDERED: NS 1,000 ML IV SCH (14:35)
[2023-07-11 15:12] LABS: Calcium, Blood 9.1 mg/dL (8.5-10.1); Creatinine, Blood 0.75 mg/dL (0.40-1.00); Potassium, Blood 4.4 mmol/L (3.5-5.5)
[2023-07-11 17:57] VITALS: BP 142/75
[2023-07-11 19:20] VITALS: BP 132/75
--- NOTE | 2023-07-11 19:24 | NUR ---
ADMIT NOTE: PT ARRIVED TO THE UNIT VIA GURNEY AT 1747. PATIENT ALERT AND ABLE TO SELF TRANSFER TO BED. SHE WAS SETTLED IN THE ROOM AND IV FLUIDS HUNG. ADMISSION ASSESSMENT COMPLETED. NO SIGNS OR SYMPTOMS OF DISTRESS WITH PATIENT. PLAN OF CARE ONGOING.
[2023-07-12 04:23] VITALS: BP 150/92
--- NOTE | 2023-07-12 05:07 | NUR ---
TEST PILOT SUMMARY PT A&O X 4, PLEASANT AND TALKATIVE WHEN AWAKE. PT INDEPENDENT IN ROOM. PT REPORTING ABDOMINAL PAIN THROUGH THE NIGHT, WORSENING WITH MOVEMENT. MEDICATED WITH FENTANYL WITH GOOD RELIEF. PT VOMITED X 1, GIVEN ZOFRAN WITH GOOD RELIEF. PT REPORTING THAT SHE WAS STARTED ON A Z-PACK FOR A RESPIRATORY INFECTION PRIOR TO HOSPITAL ADMIT. SHE ONLY TOOK IT FOR 2 DAYS. NOTE LEFT FOR HER ROUNDING PROVIDER ON THE WHITE BOARD. PT HAS A MOIST HACKING COUGH AND LUNGS SOUND MOIST WELL WITH SCANT AMOUNTS OF PRODUCTION. PT SLEPT MOST OF THE NIGHT WAKING NEEDING PAIN MEDS ONLY. 07/12/23 ZION COOL RN
[2023-07-12 05:30] LABS: BASOPHILS ABSOLUTE AUTO 0.05 K/mm3 (0.00-0.23); BASOPHILS PERCENT AUTO 1 % (0-2); EOSINOPHILS ABSOLUTE AUTO 0.29 K/mm3 (0.00-0.68); EOSINOPHILS PERCENT AUTO 3 % (0-6); Hematocrit 37.5 % (33.0-51.0); Hemoglobin 11.6 g/dL (11.5-16.0); IMMATURE GRAN ABSOLUTE AUTO 0.03 K/mm3 (0.00-0.10); IMMATURE GRAN PERCENT AUTO 0 % (0-1); LYMPHOCYTES ABSOLUTE AUTO 1.27 K/mm3 (0.84-5.20); LYMPHOCYTES PERCENT AUTO 15 % (21-46); MONOCYTES ABSOLUTE AUTO 0.52 K/mm3 (0.16-1.47); MONOCYTES PERCENT AUTO 6 % (4-13); Mean Corpuscular HGB 24.1 pg (26.0-34.0); Mean Corpuscular HGB Conc 30.9 g/dL (31.5-36.5); Mean Corpuscular Volume 78 fL (80-100); NEUTROPHILS ABSOLUTE AUTO 6.45 K/mm3 (1.96-9.15); NEUTROPHILS PERCENT AUTO 75 % (41-73); Platelet Count 271 K/mm3 (150-400); RDW Coefficient Variation 17.1 % (11.7-14.2); Red Blood Cell Count 4.81 M/mm3 (3.80-5.20); White Blood Cell Count 8.61 K/mm3 (4.00-11.30)
[2023-07-12 05:57] LABS: Bun/Creatinine Ratio 16.4 (12.0-20.0); Calcium, Blood 8.6 mg/dL (8.5-10.1); Creatinine, Blood 0.79 mg/dL (0.40-1.00); Potassium, Blood 4.3 mmol/L (3.5-5.5)
[2023-07-12] MEDS ORDERED: Pantoprazole Sodium 40 MG Injection IV SCH (06:00)
[2023-07-12 07:32] VITALS: BP 111/75
[2023-07-12] MEDS ORDERED: Enoxaparin 40 MG/0.4 ML SYR SC SCH (09:00)
[2023-07-12] MEDS ORDERED: Ketorolac Tromethamine 30mg Vial IV PRN (10:00)
[2023-07-12] MEDS ORDERED: Albuterol HFA200 ACT/6.7 GM INH INH PRN (10:05)
[2023-07-12] MEDS ORDERED: Azithromycin 250 MG Tab PO SCH (10:30)
--- NOTE | 2023-07-12 14:16 | NUR ---
DR MARCOS IN ROOM. OKAYED GIVE LOVENOX. LIKEY NO SURGERY.
[2023-07-12 16:01] VITALS: BP 112/66
[2023-07-12] MEDS ORDERED: Albuterol HFA200 ACT/6.7 GM INH INH SCH (17:05)
--- NOTE | 2023-07-12 18:28 | NUR ---
END SHIFT PT ALERT AND ORIENTED. DR DIAZED LOVENOX INJECTION BECAUSE NO SURGERY, INJECTED AFTERNOON. STILL NPO STATUS DUE TO SBO. FLUIDS RUNNING 10ML/HR. EATING ICE CHIPS. PAIN CONTROL WITH TORADOL 15MG. AMBULATE TO BATHROOM TWICE WITH ASSIST. ABDOMINAL PAIN WHILE COUGHING, RELIEF WITH WARM BLANKET.
--- NOTE | 2023-07-12 18:41 | NUR ---
AGREE WITH STUDENT NOTE. PT PLEASNT TODAY. TORADOL IMPROVED PAIN CONTROL. DID MUCH BETTER TODAY. PLAN FOR SB SWALLOW THROUGH TOMORROW AM. PER DR MARCOS. FAMILY IN TO VISIT. PT VERY HAPPY ABOUT THAT. NO OTHER CONCERNS NOTED. BED IN LOW APOSITION, CALL LITE IN REACH MANUELITO APPROP
[2023-07-12 19:31] VITALS: BP 108/61
[2023-07-12] MEDS ORDERED: Lactobacil 2-S.Thermo-Bifido 1 1 Cap PO SCH (21:00)
--- NOTE | 2023-07-13 04:19 | NUR ---
BILINGUAL RESEARCH INTERVIEWER SUMMARY PT A&O X4, PLEASANT AND TALKATIVE. PT INDEPENDENT IN ROOM. PT CONTINUES TO REPORT PAIN IN ABDOMEN BUT STATES IT HAS IMPROVED WITH ADDING TORADOL. PT REQUIRING LESS FENTANYL TONIGHT. PT ABDOMEN MICA SIZER TO PALPATION. PT ALSO COUGHING LESS TONIGHT AND REPORTS NO N/V. PT REMAINED NPO THROUGH THE NIGHT WITH ONLY ICE CHIPS. PT SLEPT ABOUT HALF OF THE NIGHT NOT FALLING ASLEEP UNTIL AFTER MIDNIGHT. 07/13/23 ZION COOL RN
[2023-07-13 04:31] VITALS: BP 122/68
[2023-07-13 07:28] VITALS: BP 131/77
[2023-07-13 16:29] VITALS: BP 115/78
--- NOTE | 2023-07-13 17:08 | NUR ---
SHIFT SUMMARY PT COMPLETED SMALL BOWEL FOLLOW THROUGH TODAY AND THEN UPGRADED TO CLEAR LIQ DIET. TOLERATING WELL SO FAR TODAY. PT HAD 2 BMS TODAY. PASSING GAS. NAUSEATED ONLY AFTER DRINKING CONTRAST TODAY & MEDICATED FOR THIS. SEE EMAR FOR PAIN TOW CAR DRIVER. IV FLUIDS STOPPED TODAY. PLAN TO ADVANCE TO FULL LIQUID TOMORROW MORNING IF PT TOLERATING CLEARS THE REST THE DAY. PT DENIES OTHER NEEDS AT THIS TIME. VS REVIEWED. SHOWERED TODAY. RESTING IN BED. CALL LIGHT IN REACH.
[2023-07-13 19:44] VITALS: BP 123/80
[2023-07-14 05:27] VITALS: BP 121/78
--- NOTE | 2023-07-14 05:30 | NUR ---
SHIFT SUMMARY PT A&OX4 AND ANSWERS QUESTIONS APPROPRIATELY. PT MEDICATED PER EMAR. PT SPENT MOST OF SHIFT WITH EYES CLOSED AND RESPIRATIONS EVEN AND UNLABORED. PT HAS BEEN TOLERATING CLEAR LIQUIDS WITH NO DISCOMFORT AND VERBALIZES THE DESIRE TO PROGRESS DIET. VSS, NO COMPLAINTS OF CP OR SOB. NO ACUTE EVENTS AT THIS TIME. PROPER FALL PRECAUTIONS IN PLACE AND CALL LIGHT IN REACH.
[2023-07-14 07:48] VITALS: BP 120/75
[2023-07-14] MEDS ORDERED: Miconazole Nitrate 2% 85 GM PWD TOP PRN (09:15)
[2023-07-14] MEDS ORDERED: ALBU90OI INH (10:18)
[2023-07-14] MEDS ORDERED: MIRALAX11910 PO (10:20)
[2023-07-14] MEDS ORDERED: MICONAZOLE NITRATE TOP (10:21)
--- NOTE | 2023-07-14 10:57 | NUR ---
DISCHARGE PT DISCHARGED AFTER NEW MEDICATION EDUCATION AND FOLLOW UP INSTRUCTIONS WERE COMPLETED. IV REMOVED & INTACT. PT DENIED FURTHER NEED FOR INSTRUCTION AT TIME OF DC. PT WHEELED OUT BY AIDE & DRIVE HOME BY FRIEND. FULL DIET WAS TOLERATED WELL. PT EDUCATED TO ADVANCE DIET SLOWLY AT HOME.
== END 2023-07-14 10:55 | disposition home or self-care (01) | DRG 389 ==
LOC: ER 10:11 → MEDS 14:28
PROVIDERS: Nurse Practitioner; ADMIT Family Medicine
DX: K56.609 Unspecified intestinal obstruction, unspecified as to partial versus complete obstruction (principal); Z68.41 Body mass index [BMI] 40.0-44.9, adult; F41.9 Anxiety disorder, unspecified; J45.909 Unspecified asthma, uncomplicated; F32.A Depression, unspecified; G43.909 Migraine, unspecified, not intractable, without status migrainosus; E66.9 Obesity, unspecified; L40.9 Psoriasis, unspecified; F17.210 Nicotine dependence, cigarettes, uncomplicated; Z90.49 Acquired absence of other specified parts of digestive tract; Z88.2 Allergy status to sulfonamides; Z88.0 Allergy status to penicillin; Z88.1 Allergy status to other antibiotic agents; Z88.8 Allergy status to other drugs, medicaments and biological substances
CPT/HCPCS: 36415; 74177; 74250; 80048; 81001; 83690; 85025; 87086; 94640; 94664; 94760; 96374-59; 96375; 96376; 99285-25; A9270; C9113; J1650; J1885; J2405; J3010; J7030; Q9967

== ENCOUNTER 2023-11-29 12:11 | Emergency (ER) | payer OTHER ==
[~2023-11-29] VITALS: Ht 170.2 cm; Wt 127.0 kg
[~2023-11-29 12:11] MED LIST changes: +METPRE4DP PO; +MICONAZOLE NITRATE TOP; +MIRALAX11910 PO
[2023-11-29 12:28] VITALS: BP 125/87
[2023-11-29] MEDS ORDERED: Acetaminophen 500 MG Tab PO ONE (13:35)
[2023-11-29] MEDS ORDERED: Prednisone20 MG PO (13:38)
[2023-11-29] MEDS ORDERED: PredniSONE 20 MG Tab PO ONE (13:40)
[2023-11-29] MEDS ORDERED: METPRE4DP PO (14:14)
== END 2023-11-29 14:18 | disposition home or self-care (01) ==
LOC: ER 12:11
DX: S80.212A Abrasion, left knee, initial encounter (principal); M54.10 Radiculopathy, site unspecified; M54.9 Dorsalgia, unspecified; G89.29 Other chronic pain; G43.909 Migraine, unspecified, not intractable, without status migrainosus; J45.909 Unspecified asthma, uncomplicated; F17.210 Nicotine dependence, cigarettes, uncomplicated; W19.XXXA Unspecified fall, initial encounter; Z79.899 Other long term (current) drug therapy; Z88.0 Allergy status to penicillin; Z88.2 Allergy status to sulfonamides; Z88.1 Allergy status to other antibiotic agents; Z88.8 Allergy status to other drugs, medicaments and biological substances
CPT/HCPCS: 73562-LT; 99283-25; A9270; J7512

== ENCOUNTER 2024-05-31 15:04 | Emergency (ER) | payer OTHER ==
[~2024-05-31] VITALS: Ht 170.2 cm; Wt 120.2 kg
[~2024-05-31 15:04] MED LIST changes: +Prednisone20 MG PO
[2024-05-31 15:17] VITALS: BP 179/96
[2024-05-31 16:24] LABS: BASOPHILS ABSOLUTE AUTO 0.07 K/mm3 (0.00-0.23); BASOPHILS PERCENT AUTO 1 % (0-2); EOSINOPHILS ABSOLUTE AUTO 0.29 K/mm3 (0.00-0.68); EOSINOPHILS PERCENT AUTO 4 % (0-6); Hematocrit 37.7 % (33.0-51.0); Hemoglobin 12.2 g/dL (11.5-16.0); IMMATURE GRAN ABSOLUTE AUTO 0.01 K/mm3 (0.00-0.10); IMMATURE GRAN PERCENT AUTO 0 % (0-1); LYMPHOCYTES ABSOLUTE AUTO 1.48 K/mm3 (0.84-5.20); LYMPHOCYTES PERCENT AUTO 22 % (21-46); MONOCYTES ABSOLUTE AUTO 0.31 K/mm3 (0.16-1.47); MONOCYTES PERCENT AUTO 5 % (4-13); Mean Corpuscular HGB 25.4 pg (26.0-34.0); Mean Corpuscular HGB Conc 32.4 g/dL (31.5-36.5); Mean Corpuscular Volume 78 fL (80-100); Mean Platelet Volume 10.5 fL (9.1-12.4); NEUTROPHILS PERCENT AUTO 69 % (41-73); Platelet Count 297 K/mm3 (150-400); RDW Coefficient Variation 15.9 % (11.7-14.2); RDW Standard Deviation 44.9 fL (35.1-46.3); Red Blood Cell Count 4.81 M/mm3 (3.80-5.20); White Blood Cell Count 6.86 K/mm3 (4.00-11.30)
[2024-05-31 16:58] LABS: Albumin, Blood 3.8 g/dL (3.4-5.0); Albumin/Globulin Ratio 0.9 (0.8-1.8); Bilirubin, Total 0.9 mg/dL (0.1-1.0); Bun/Creatinine Ratio 17.9 (12.0-20.0); Calcium, Blood 9.5 mg/dL (8.5-10.1); Creatinine, Blood 0.62 mg/dL (0.40-1.00); Globulin, Blood 4.4 g/dL (2.2-4.0); Potassium, Blood 4.9 mmol/L (3.5-5.5); Total Protein, Blood 8.2 g/dL (6.4-8.2)
[2024-05-31] MEDS ORDERED: Acetaminophen 500 MG Tab PO ONE (19:10)
== END 2024-05-31 19:09 | disposition home or self-care (01) ==
LOC: ER 15:04
PROVIDERS: Physician Assistant
DX: M54.12 Radiculopathy, cervical region (principal); M79.641 Pain in right hand; J45.909 Unspecified asthma, uncomplicated; G43.909 Migraine, unspecified, not intractable, without status migrainosus; F17.210 Nicotine dependence, cigarettes, uncomplicated; Z88.0 Allergy status to penicillin; Z88.2 Allergy status to sulfonamides; Z88.1 Allergy status to other antibiotic agents; Z88.8 Allergy status to other drugs, medicaments and biological substances; Z79.52 Long term (current) use of systemic steroids; Z79.899 Other long term (current) drug therapy; Z59.89 Other problems related to housing and economic circumstances
CPT/HCPCS: 80053; 85025; 93931; 93971; 99283-25; A9270

== ENCOUNTER 2024-09-29 21:03 | Emergency (ER) | payer OTHER ==
[~2024-09-29] VITALS: Ht 170.2 cm; Wt 108.9 kg
[2024-09-29 21:52] VITALS: BP 168/99
[2024-09-29] MEDS ORDERED: Ketorolac Tromethamine 30mg Vial IM ONE (22:10)
== END 2024-09-29 22:35 | disposition home or self-care (01) ==
LOC: ER 21:03
DX: S80.02XA Contusion of left knee, initial encounter (principal); S80.01XA Contusion of right knee, initial encounter; S70.11XA Contusion of right thigh, initial encounter; J45.909 Unspecified asthma, uncomplicated; F17.210 Nicotine dependence, cigarettes, uncomplicated; X58.XXXA Exposure to other specified factors, initial encounter; Z79.899 Other long term (current) drug therapy; Z88.0 Allergy status to penicillin; Z88.2 Allergy status to sulfonamides; Z88.1 Allergy status to other antibiotic agents
CPT/HCPCS: 96372; 99282-25; J1885

== ENCOUNTER → 2024-10-12 | Outpatient (CLI) | payer OTHER | LOC: LAB SHORT 15:58 → LAB 15:58 | DX: R31.9 Hematuria, unspecified (principal) | CPT/HCPCS: 87077; 87086; 87186; 87335 ==